=== PATIENT | female | born 1950 | race Caucasian/White ===

== ENCOUNTER 2020-10-01 16:23 | Emergency (ER) | payer MEDICARE, OTHER, SELFPAY ==
--- NOTE | ~2020-10-01 | XR_ITS ---
EXAMINATION: XR abdomen/kub 1V EXAM DATE: 10/01/2020 17:13 INDICATION: pelvic/low back pain. TECHNIQUE: Frontal projection of the upper abdomen, frontal projection lower abdomen/pelvis for inter pretation. There is no prior study for comparison. FINDINGS: There is expected amount of colonic stool and gas. No small bowel dilation, nonobstructiv e bowel gas pattern. There are no suspicious calcifications identified. There is no organomegaly suspected. The bones are unremarkable. There is no free intraperitoneal air. The lung bases are clear. IMPRESSION: Unremarkable abdomen x-ray exam. Reviewed, dictated and finalized at location A.
[2020-10-01 16:44] VITALS: BP 143/78; PULSE 88; RESP 16; TEMP 36.9; O2SAT 97
--- NOTE | 2020-10-01 16:50 | ED.ABDPAIN ---
HPI - Abdominal Pain General Chief Complaint: Abdominal Pain Stated Complaint: abd pain Time Seen by Provider: 10/01/20 16:51 Source: patient and RN notes reviewed Mode of arrival: ambulatory Limitations: no limitations History of Present Illness HPI narrative: 70-year-old female presents with concern for 2-week history of lower abdominal pain, pressure. Reports over the past several days she has began having low back pain. Reports slow urine stream. Reports she is able to empty her bladder however it takes much longer than usual. She denies dysuria, frequency, urgency. She denies nausea, vomiting, change in bowel habits. Reports she recently recovered from Covid. She denies fever, body aches, chills, upper respiratory symptoms. Reports she went to her doctor's office this morning, he was not in, however the staff did a urinalysis. Reports the urinalysis was clear, however they prescribed her Bactrim while they wait for culture. Reports she has not started taking the Bactrim yet. MD elicited complaint: abdominal pain Related Data Home Medications Medication Instructions Recorded Confirmed ascorbic acid 125 mg-collagen, cap PO 01/15/20 01/15/20 hydrolyzed 740 mg capsule cholecalciferol (vit D3) 5,500 tablet PO 01/15/20 01/15/20 unit-vit K2 200 mcg tablet multivitamin 1 cap PO DAILY 01/15/20 01/15/20 omega-3 fatty acids 500 mg capsule 500 mg PO DAILY 01/15/20 01/15/20 oregano oil 1,500 mg capsule mg PO 01/15/20 01/15/20 turmeric 400 mg capsule mg PO 01/15/20 01/15/20 Allergies Allergy/AdvReac Type Severity Reaction Status Date / Time guaifenesin Allergy Unknown Verified 01/10/18 09:16 mold Allergy Unknown Verified 01/10/18 09:17 Penicillins Allergy Unknown Rash Verified 01/10/18 09:14 polyethylene glycol 3350 Allergy Unknown Verified 07/15/18 09:20 Review of Systems Review of Systems: Narrative: CONSTITUTIONAL: Denies malaise, chills, sweats, or fever. ENT: Denies rhinorrhea, congestion, sinus pain, otalgia or sore throat. CARDIOVASCULAR: Denies chest pain, palpitations, or edema. RESPIRATORY: Denies cough or dyspnea. GASTROINTESTINAL: Reports lower abdominal pain and pelvic pressure. Denies nausea, vomiting, diarrhea, bloody, or mucous stools. GENITOURINARY: Denies dysuria or hematuria. Reports slow urine stream MUSCULOSKELETAL: Reports low back pain. Denies joint pain, or myalgia. NEUROLOGIC: Reports daily headache. All systems reviewed & are unremarkable except as noted in HPI and below PMFSH Past Medical History Medical History (Updated 10/01/20 @ 17:30 by Katt Han NP) MARILIN (obstructive sleep apnea) Rectal fistula w/repair Rhinitis Surgical History Surgical History (Updated 01/15/20 @ 10:40 by Star Whitt APRN) H/O bilateral oophorectomy History of appendectomy History of uterine suspension procedure Family History Family History Father Diabetes mellitus Hypertension Family history of sleep apnea Family history of congestive heart failure Sibling Diabetes mellitus Family history of sleep apnea Grandparent Family history of malignant neoplasm of breast in first degree relative Mother Family history of sudden Social History Social History Smoking status: Never smoker Second hand tobacco smoke exposure: No Alcohol intake: never Comments At time of signature, agree with nursing past medical, surgical, social and family history. There is no relevant family history pertinent to the presenting complaint Exam Narrative: Exam Narrative: GENERAL: Well-appearing, well-nourished, and in no acute distress. HEAD: Normocephalic, atraumatic. EYES: PERRLA, conjunctivae clear, and EOMI. ENT: Nares clear. Mucous membranes moist. NECK: Supple. No lymphadenopathy CHEST: Speaks in full sentences. No respiratory distress. HEART: Regular rate and r
--- NOTE | 2020-10-01 17:36 | PC.NURSE ---
Pelvic exam done by provider and patient tolerated well.
== END 2020-10-01 17:37 | disposition home or self-care (01) ==
PROVIDERS: Emergency Provider Nurse Practitioner; PCP Nurse Practitioner Adult Health
DX: R10.30 Lower abdominal pain, unspecified (principal); G47.33 Obstructive sleep apnea (adult) (pediatric)
CPT/HCPCS: 74018; 81003; 99213; G0463

== ENCOUNTER 2020-10-07 10:08 | Emergency (ER) | payer MEDICARE, OTHER, SELFPAY ==
[2020-10-07 10:14] VITALS: BP 142/90; PULSE 72; RESP 20; TEMP 36.7; O2SAT 99
--- NOTE | 2020-10-07 10:15 | ED.SKABFB ---
HPI - Skin/Abscess/Foreign Bdy General Chief complaint: Skin/Abscess/Foreign Body Stated complaint: rash Time Seen by Provider: 10/07/20 10:26 Source: patient and RN notes reviewed Mode of arrival: ambulatory Limitations: no limitations History of Present Illness HPI narrative: 70-year-old female presents with concern for painful rash. Reports she has been having right lower back pain, side pain, lower abdominal pain for 1 week. Reports she was seen by her primary care doctor and an urgent care for possible urinary tract infection that was causing pain. Reports both times her UA was normal. 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 Reports pain persisted. Reports she developed a rash in the painful area over the last 2 days. She denies any other rash on her body. She denies swollen lips, swollen tongue, difficulty breathing. She denies any relieving factors. She denies fever, general malaise, body aches. MD complaint: rash Related Data Home Medications Medication Instructions Recorded Confirmed ascorbic acid 125 mg-collagen, 1 cap PO DAILY 01/15/20 10/07/20 hydrolyzed 740 mg capsule cholecalciferol (vit D3) 5,500 1 tablet PO DAILY 01/15/20 10/07/20 unit-vit K2 200 mcg tablet multivitamin 1 cap PO DAILY 01/15/20 10/07/20 omega-3 fatty acids 500 mg capsule 500 mg PO DAILY 01/15/20 10/07/20 oregano oil 1,500 mg capsule 1,500 mg PO DAILY 01/15/20 10/07/20 turmeric 400 mg capsule 400 mg PO DAILY 01/15/20 10/07/20 Allergies Allergy/AdvReac Type Severity Reaction Status Date / Time guaifenesin Allergy Unknown Unknown Verified 10/07/20 10:14 mold Allergy Unknown Unknown Verified 10/07/20 10:14 Penicillins Allergy Unknown Rash Verified 10/07/20 10:14 polyethylene glycol 3350 Allergy Unknown Unknown Verified 10/07/20 10:14 Review of Systems Review of Systems: Narrative: CONSTITUTIONAL: Denies malaise, chills, sweats, or fever. ENT: Denies rhinorrhea, congestion, sinus pain, otalgia or sore throat. CARDIOVASCULAR: Denies chest pain, palpitations, or edema. RESPIRATORY: Denies cough or dyspnea. GASTROINTESTINAL: Denies abdominal pain, nausea, vomiting, diarrhea GENITOURINARY: Denies dysuria or hematuria. SKIN: Reports painful red rash to the right low back, right side, right lower abdomen, right thigh MUSCULOSKELETAL: Denies myalgia. NEUROLOGIC: Denies headache. All systems reviewed & are unremarkable except as noted in HPI and below PMFSH Past Medical History Medical History (Updated 10/07/20 @ 10:34 by Katt Han NP) Asthma MARILIN (obstructive sleep apnea) Rectal fistula w/repair Rhinitis Surgical History Surgical History (Updated 10/05/20 @ 10:25 by Gwen Jennings [facility]) History of appendectomy History of ovarian cystectomy History of tubal ligation History of uterine suspension procedure Family History Family History Father Diabetes mellitus Hypertension Family history of sleep apnea Family history of congestive heart failure Sibling Diabetes mellitus Family history of sleep apnea Grandparent Family history of malignant neoplasm of breast in first degree relative Mother Family history of sudden Social History Social History Smoking status: Never smoker Second hand tobacco smoke exposure: No Alcohol intake: never Comments At time of signature, agree with nursing past medical, surgical, social and family history. There is no relevant family history pertinent to the presenting complaint Exam Narrative: Exam Narrative: GENERAL: Well-appearing, well-nourished, and in no acute distress. HEAD: Normocephalic, atraumatic. EYES: PERRLA, conjunctivae clear, and EOMI. ENT: Mucous membranes moist. Oropharynx without edema, erythema or lesions. NECK: Supple. No lymphadenopathy CHEST: Clear to auscultation. No respir
== END 2020-10-07 10:41 | disposition home or self-care (01) ==
PROVIDERS: Emergency Provider Nurse Practitioner; PCP Nurse Practitioner Adult Health
DX: B02.9 Zoster without complications (principal); J45.909 Unspecified asthma, uncomplicated; G47.33 Obstructive sleep apnea (adult) (pediatric)
CPT/HCPCS: 99213; G0463

== ENCOUNTER 2024-06-19 14:07 | Outpatient (CLI) | payer MEDICARE, OTHER, SELFPAY ==
--- OUTSIDE RECORDS SUMMARY | 2024-06-19 14:50 | XMS_ITS | Data Portability ---
Author Organization FABRICE - [facility], PDeborahCDeborah, [facility] Address [address] [place] [address] Assessment No assessment recorded. Plan of Treatment Reminders Order Date Submit Date Provider Last Modified By Organization Details Last Modified Time Details Appointments None recorded. Lab HbA1c (hemoglobi n A1c), blood 2013 014 smimms Not available 4 13:53:13 TSH, serum or plasma 2013 014 smimms Not available 4 13:53:13 VAP lipid panel, serum 2013 014 smimms Not available 4 13:53:13 insulin, fasting, serum 2013 014 smimms Not available 4 13:53:13 CBC 2013 014 smimms Not available 4 13:53:13 CMP, serum or plasma 2013 014 smimms Not available 4 13:53:13 carcinoemb ryonic Ag, quant, serum or plasma 2013 014 RIGOBERTO Not available 4 16:37:31 HbA1c (hemoglobi n A1c), blood 2013 014 RIGOBERTO Not available 4 16:37:24 T4, free, serum 2013 014 RIGOBERTO Not available 4 16:37:30 TSH, serum or plasma 2013 014 RIGOBERTO Not available 4 16:37:29 lipid panel, serum 2013 014 [email or web address] Not available 4 23:35:43 carcinoemb ryonic Ag, quant, serum or plasma 2014 015 RIGOBERTO Not available 5 07:40:50 HbA1c (hemoglobi n A1c), blood 2014 015 RIGOBERTO Not available 5 07:40:49 T4, free, serum 2014 015 RIGOBERTO Not available 5 07:40:50 TSH, serum or plasma 2014 015 RIGOBERTO Not available 5 07:40:50 lipid panel, serum 2014 015 RIGOBERTO Not available 5 07:40:49 carcinoemb ryonic Ag, quant, serum or plasma 2015 016 RIGOBERTO Not available 6 10:06:58 HbA1c (hemoglobi n A1c), blood 2015 016 RIGOBERTO Not available 6 10:06:54 T4, free, serum 2015 016 RIGOBERTO Not available 6 10:06:56 TSH, serum or plasma 2015 016 RIGOBERTO Not available 6 10:06:57 lipid panel, serum 2015 016 RIGOBERTO Not available 6 10:06:53 Referral None recorded. Procedures None recorded. Surgeries None recorded. Imaging None recorded. Medication Orders None recorded. Patient TargetsNo targets recorded. Patient Instructions Encounter Date Encounter Id Patient Instructions Last Modified By Organization Details Last Modified Time 09/30/2013 [id number] When You Want to Lose Weight: Care Instructions [email or web address] Not available 09/30/2013 16:40:30 Pt. plans to resume her previously effective diet plan. [email or web address] Not available 09/30/2013 12:04:19 Reason for Referral None Reported. Results Created Date Observation Date Name Description Value Unit Range Abnormal Flag Note LastModifiedBy Organization Detail LastModifiedTime 10/08/19 14 10/08/2013 CBC WBC 4.5 x10e3 /uL 3.4-10 .8 Not Available [facility] ([facility]) [address] [place], [address], 10/08/2013 14:58:08 10/08/19 14 10/08/2013 CBC RBC 4.36 x10e6 /uL 3.77-5 .28 Not Available [facility] ([facility]) [address] [place], [address], 10/08/2013 14:58:08 10/08/19 14 10/08/2013 CBC hemoglobin 12.9 g/dL 11.1-1 5.9 Not Available [facility] ([facility]) [address] [place], [address], 10/08/2013 14:58:08 10/08/19 14 10/08/2013 CBC hematocrit 40.3 % 34.0-4 6.6 Not Available [facility] ([facility]) [address] [place], [address], 10/08/2013 14:58:08 10/08/19 14 10/08/2013 CBC MCV 92 fL 79-97 Not Available [facility] ([facility]) [address] [place], [address], 10/08/2013 14:58:08 10/08/19 14 10/08/2013 CBC MCH 29.6 pg 26.6-3 3.0 Not Available [facility] ([facility]) [address] [place], [address], 10/08/2013 14:58:08 10/08/19 14 10/08/2013 CBC MCHC 32.0 g/dL 31.5-3 5.7 Not Available [facility] ([facility]) [address] [place], [address], 10/08/2013 14:58:08 10/08/19 14 10/08/2013 CBC RDW 14.0 % 12.3-1 5.4 Not Available [facility] ([facility]) [address] [place], [address], 10/08/2013 14:58:08 10/08/19 14 10/08/2013 CBC platelets 217 x10e3 /uL 155-37 9 Not Available [facility] ([facility]) [address] [place], [address], 10/08/2013 14:58:08 10/08/19 14 10/08/2013 CBC neutrophils 60 % 40-74 Not Avai lable [facility] ([facility]) [address] [place], [address], 10/08/2013 14:58:08 10/08/19 14 10/08/2013 CBC lymphs 28 % 14-46 Not Available [facility] ([facility]) [address] [place], [address], 10/08/2013 14:58:08 10/08/19 14 10/08/2013 CBC monocytes 8 % 4-12 Not Availa ble [facility] ([facility]) [address] [place], [address], 10/08/2013 14:58:08 10/08/19 14 10/08/2013 CBC eos 3 % 0-5 Not Available [facility] ([facility]) [address] [place], [address], 10/08/2013 14:58:08 10/08/19 14 10/08/2013 CBC basos 1 % 0-3 Not Available [facility] ([facility]) [address] [place], [address], 10/08/2013 14:58:08 10/08/19 14 10/08/2013 CBC neutrophils (absolute) 2.7 x10e3 /uL 1.4-7. 0 Not Available [facility] ([facility]) [address] [place], [address], 10/08/2013 14:58:08 10/08/19 14 10/08/2013 CBC lymphs (absolute) 1.3 x10e3 /uL 0.7-3. 1 Not Available [facility] ([facility]) [address] [place], [address], 10/08/2013 14:58:08 10/08/19 14 10/08/2013 CBC monocytes(ab solute) 0.3 x10e3 /uL 0.1-0. 9 Not Available [facility] ([facility]) [address] [place], [address], 10/08/2013 14:58:08 10/08/19 14 10/08/2013 CBC eos (absolute) 0.1 x10e3 /uL 0.0-0. 4 Not Available [facility] ([facility]) [address] [place], [address], 10/08/2013 14:58:08 10/08/19 14 10/08/2013 CBC baso (absolute) 0.0 x10e3 /uL 0.0-0. 2 Not Available [facility] ([facility]) [address] [place], [address], 10/08/2013 14:58:08 10/08/19 14 10/08/2013 CBC immature granulocytes 0 % 0-2 Not Available [facility] ([facility]) [address] [place], [address], 10/08/2013 14:58:08 10/08/19 14 10/08/2013 CBC immature grans (abs) 0.0 x10e3 /uL 0.0-0. 1 Not Available [facility] ([facility]) [address] [place], [address], 10/08/2013 14:58:08 10/08/19 14 10/08/2013 CMP, serum or plasm a glucose, serum 92 mg/dL 65-99 Not Available [facility] ([facility]) [address] [place], [address], 10/08/2013 14:58:08 10/08/19 14 10/08/2013 CMP, serum or plasm a BUN 8 mg/dL 8-27 Not Available [facility] ([facility]) [address] [facility] [place], [address], 10/08/2013 14:58:08 10/08/19 14 10/08/2013 CMP, serum or plasm a creatinine, serum 0.72 mg/dL 0.57-1 .00 Not Available [facility] ([facility]) [address] [facility] [place], [address], 10/08/2013 14:58:08 10/08/19 14 10/08/2013 CMP, serum or plasm a eGFR if nonafricn AM 91 mL/mi n/1.7 3 >59 Not Available [facility] ([facility]) [address] [place], [address], 10/08/2013 14:58:08 10/08/19 14 10/08/2013 CMP, serum or plasm a eGFR if africn AM 105 mL/mi n/1.7 3 >59 Not Available [facility] ([facility]) [address] [place], [address], 10/08/2013 14:58:08 10/08/19 14 10/08/2013 CMP, serum or plasm a BUN/creatini ne ratio 11 11-26 Not Available [facility] ([facility]) [address] [place], [address], 10/08/2013 14:58:08 10/08/19 14 10/08/2013 CMP, serum or plasm a sodium, serum 142 mmol/ L 134-14 4 Not Available [facility] ([facility]) [address] [place], [address], 10/08/2013 14:58:08 10/08/19 14 10/08/2013 CMP, serum or plasm a potassium, serum 4.7 mmol/ L 3.5-5. 2 Not Available [facility] ([facility]) [address] [place], [address], 10/08/2013 14:58:08 10/08/19 14 10/08/2013 CMP, serum or plasm a chloride, serum 105 mmol/ L 97-108 Not Available [facility] ([facility]) [address] [place], [address], 10/08/2013 14:58:08 10/08/19 14 10/08/2013 CMP, serum or plasm a carbon dioxide, total 25 mmol/ L 19-28 Not Available [facility] ([facility]) [address] [place], [address], 10/08/2013 14:58:08 10/08/19 14 10/08/2013 CMP, serum or plasm a calcium, serum 9.0 mg/dL 8.6-10 .2 Not Available [facility] ([facility]) [address] [place], [address], 10/08/2013 14:58:08 10/08/19 14 10/08/2013 CMP, serum or plasm a protein, total, serum 6.2 g/dL 6.0-8. 5 Not Available [facility] ([facility]) [address] [place], [address], 10/08/2013 14:58:08 10/08/19 14 10/08/2013 CMP, serum or plasm a albumin, serum 4.0 g/dL 3.6-4. 8 Not Available [facility] ([facility]) [address] [place], [address], 10/08/2013 14:58:08 10/08/19 14 10/08/2013 CMP, serum or plasm a globulin, total 2.2 g/dL 1.5-4. 5 Not Available [facility] ([facility]) [address] [place], [address], 10/08/2013 14:58:08 10/08/19 14 10/08/2013 CMP, serum or plasm a A/G ratio 1.8 1.1-2. 5 Not Available [facility] ([facility]) [address] [place], [address], 10/08/2013 14:58:08 10/08/19 14 10/08/2013 CMP, serum or plasm a bilirubin, total 0.4 mg/dL 0.0-1. 2 Not Available [facility] ([facility]) [address] [place], [address], 10/08/2013 14:58:08 10/08/19 14 10/08/2013 CMP, serum or plasm a alkaline phosphatase, S 46 IU/L 39-117 Not Available [facility] ([facility]) [address] [place], [address], 10/08/2013 14:58:08 10/08/19 14 10/08/2013 CMP, serum or plasm a AST (SGOT) 21 IU/L 0-40 Not Available [facility] ([facility]) [address] [place], [address], 10/08/2013 14:58:08 10/08/19 14 10/08/2013 CMP, serum or plasm a ALT (SGPT) 20 IU/L 0-32 Not Available [facility] ([facility]) [address] [place], [address], 10/08/2013 14:58:08 10/08/19 14 10/08/2013 lipid panel cholesterol, total 205 mg/dL 100-19 9 high Not Available [facility] ([facility]) [address] [place], [address], 10/08/2013 14:58:09 10/08/19 14 10/08/2013 lipid panel triglyceride s 71 mg/dL 0-149 Not Available [facility] ([facility]) [address] [place], [address], 10/08/2013 14:58:09 10/08/19 14 10/08/2013 lipid panel HDL cholesterol 79 mg/dL >39 accor ding to atp-I II guide lines , HDL-C >59 mg/dL IS consi dered A negat lissa risk facto r for CHD. Not Available [facility] ([facility]) [address] [place], [address], 10/08/2013 14:58:09 10/08/19 14 10/08/2013 lipid panel VLDL cholesterol leonard 14 mg/dL 5-40 Not Available [facility] ([facility]) [address] [place], [address], 10/08/2013 14:58:09 10/08/19 14 10/08/2013 lipid panel LDL cholesterol calc 112 mg/dL 0-99 high Not Available [facility] ([facility]) [address] [place], [address], 10/08/2013 14:58:10/08/19 14 10/08/2013 TSH, serum or plasm a TSH 2.810 uIU/m L 0.450- 4.500 Not Available [facility] ([facility]) [address] [place], [address], 10/08/2013 14:58:09 10/08/19 14 10/08/2013 HbA1c (hemo globi n A1c), blood hemoglobin A1C 5.6 % 4.8-5. 6 . incre ased risk for diabe ana: 5.7 - 6.4 diabe ana: >6.4 glyce wale contr ol for adult s with diabe ana: <7.0 Not Available [facility] ([facility]) [address] [place], [address], 10/08/2013 14:58:10 10/08/19 14 10/08/2013 T4 free T4,free(dire ct) 1.07 NG/dL 0.82-1 .77 Not Available [facility] ([facility]) [address] [place], [address], 10/08/2013 14:58:10 10/08/19 14 10/08/2013 insul in serum insulin 12.6 uIU/m L 2.6-24 .9 Not Available [facility] ([facility]) [address] [place], [address], 10/08/2013 14:58:11 03/30/20 14 03/31/2014 HbA1c (hemo globi n A1c), blood hemoglobin A1C 5.6 % 4.8-5. 6 . INCRE ASED RISK FOR DIABE ANA: 5.7 - 6.4 DIABE ANA: >6.4 GLYCE WALE CONTR OL FOR ADULT S WITH DIABE ANA: <7.0 Not Available [facility] ([facility]) [address] [place], [address], 03/31/2014 16:37:24 03/30/20 14 03/31/2014 insul in, serum insulin 10.6 uIU/m L 2.6-24 .9 Not Available [facility] ([facility]) [address] [place], [address], 03/31/2014 16:37:25 03/30/20 14 03/31/2014 lipid panel , serum cholesterol, total 181 mg/dL 100-19 9 Not Available [facility] ([facility]) [address] [place], [address], 03/31/2014 16:37:28 03/30/20 14 03/31/2014 lipid panel , serum triglyceride s 91 mg/dL 0-149 Not Available [facility] ([facility]) [address] [place], [address], 03/31/2014 16:37:28 03/30/20 14 03/31/2014 lipid panel , serum HDL cholesterol 64 mg/dL >39 ACCOR DING TO ATP-I II GUIDE LINES , HDL-C >59 MG/DL IS CONSI DERED A NEGAT LISSA RISK FACTO R FOR CHD. Not Available [facility] ([facility]) [address] [place], [address], 03/31/2014 16:37:28 03/30/20 14 03/31/2014 lipid panel , serum VLDL cholesterol leonard 18 mg/dL 5-40 Not Available [facility] ([facility]) [address] [place], [address], 03/31/2014 16:37:28 03/30/20 14 03/31/2014 lipid panel , serum LDL cholesterol calc 99 mg/dL 0-99 Not Available [facility] ([facility]) [address] [place] [address], [address], 03/31/2014 16:37:28 03/30/20 14 03/31/2014 TSH, serum or plasm a TSH 1.670 uIU/m L 0.450- 4.500 Not Available [facility] ([facility]) [address] [place], [address], 03/31/2014 16:37:29 03/30/20 14 03/31/2014 T4, free, serum T4,free(dire ct) 1.26 NG/dL 0.82-1 .77 Not Available [facility] ([facility]) [address] [place], [address], 03/31/2014 16:37:30 03/30/20 14 03/31/2014 carci noemb ryoni c Ag, quant , serum or plasm a cea 6.1 NG/mL 0.0-4. 7 high EARLENE ECLIA METHO DOLOG Y NONSM OKERS <3.9 SMOKE RS <5.6 Not Available [facility] ([facility]) [address] [place], [address], 03/31/2014 16:37:31 03/30/20 14 03/31/2014 insul in, serum insulin 10.3 uIU/m L 2.6-24 .9 Not Available [facility] ([facility]) [address] [place], [address], 03/31/2014 16:37:32 11/07/19 15 11/07/2014 lipid panel , serum cholesterol, total 203 mg/dL 100-19 9 high Not Available [facility] ([facility]) [address] [place], [address], 11/07/2014 07:40:49 11/07/19 15 11/07/2014 lipid panel , serum triglyceride s 80 mg/dL 0-149 Not Available [facility] ([facility]) [address] [place], [address], 11/07/2014 07:40:49 11/07/19 15 11/07/2014 lipid panel , serum HDL cholesterol 75 mg/dL >39 ACCOR DING TO ATP-I II GUIDE LINES , HDL-C >59 MG/DL IS CONSI DERED A NEGAT LISSA RISK FACTO R FOR CHD. Not Available [facility] ([facility]) [address] [facility], [place], [address], 11/07/2014 07:40:49 11/07/19 15 11/07/2014 lipid panel , serum VLDL cholesterol leonard 16 mg/dL 5-40 Not Available [facility] ([facility]) [address] [place], [address], 11/07/2014 07:40:49 11/07/19 15 11/07/2014 lipid panel , serum LDL cholesterol calc 112 mg/dL 0-99 high Not Available [facility] ([facility]) [address] [place], [address], 11/07/2014 07:40:49 11/07/19 15 11/07/2014 HbA1c (hemo globi n A1c), blood hemoglobin A1C 5.6 % 4.8-5. 6 . INCRE ASED RISK FOR DIABE ANA: 5.7 - 6.4 DIABE ANA: >6.4 GLYCE WALE CONTR OL FOR ADULT S WITH DIABE ANA: <7.0 Not Available [facility] ([facility]) [address] [place], [address], 11/07/2014 07:40:49 11/07/19 15 11/07/2014 T4, free, serum T4,free(dire ct) 1.33 NG/dL 0.82-1 .77 Not Available [facility] ([facility]) [address] [place], [address], 11/07/2014 07:40:50 11/07/19 15 11/07/2014 TSH, serum or plasm a TSH 2.010 uIU/m L 0.450- 4.500 Not Available [facility] ([facility]) [address] [place], [address], 11/07/2014 07:40:50 11/07/19 15 11/07/2014 carci noemb ryoni c Ag, quant , serum or plasm a cea 6.6 NG/mL 0.0-4. 7 high EARLENE ECLIA METHO DOLOG Y NONSM OKERS <3.9 SMOKE RS <5.6 Not Available [facility] ([facility]) [address] [place], [address], 11/07/2014 07:40:50 09/06/19 16 09/07/2015 lipid panel , serum cholesterol, total 197 mg/dL 100-19 9 Not Available [facility] ([facility]) [address] [place], [address], 09/07/2015 10:06:53 09/06/19 16 09/07/2015 lipid panel , serum triglyceride s 76 mg/dL 0-149 Not Available [facility] ([facility]) [address] [place], [address], 09/07/2015 10:06:53 09/06/19 16 09/07/2015 lipid panel , serum HDL cholesterol 75 mg/dL >39 ACCOR DING TO ATP-I II GUIDE LINES , HDL-C >59 MG/DL IS CONSI DERED A NEGAT LISSA RISK FACTO R FOR CHD. Not Available [facility] ([facility]) [address] [facility], [place], [address], 09/07/2015 10:06:53 09/06/19 16 09/07/2015 lipid panel , serum VLDL cholesterol leonard 15 mg/dL 5-40 Not Available [facility] ([facility]) [address] [place], [address], 09/07/2015 10:06:53 09/06/19 16 09/07/2015 lipid panel , serum LDL cholesterol calc 107 mg/dL 0-99 above high normal Not Available [facility] ([facility]) [address] [place], [address], 09/07/2015 10:06:53 09/06/19 16 09/07/2015 lipid panel , serum comment: [employer] Not Available [facility] ([facility]) [address] [place], [address], 09/07/2015 10:06:53 09/06/19 16 09/07/2015 HbA1c (hemo globi n A1c), blood hemoglobin A1C 5.6 % 4.8-5. 6 PRE-D IABET ES: 5.7 - 6.4 DIABE ANA: >6.4 GLYCE WALE CONTR OL FOR ADULT S WITH DIABE ANA: <7.0 Not Available [facility] ([facility]) [address] [place], [address], 09/07/2015 10:06:54 09/06/19 16 09/07/2015 T4, free, serum T4,free(dire ct) 1.14 NG/dL 0.82-1 .77 Not Available [facility] ([facility]) [address] [place], [address], 09/07/2015 10:06:56 09/06/19 16 09/07/2015 TSH, serum or plasm a TSH 2.130 uIU/m L 0.450- 4.500 Not Available [facility] ([facility]) [address] [place], [address], 09/07/2015 10:06:57 09/06/19 16 09/07/2015 carci noemb ryoni c Ag, quant , serum or plasm a cea 7.7 NG/mL 0.0-4. 7 above high normal EARLENE ECLIA METHO DOLOG Y NONSM OKERS <3.9 SMOKE RS <5.6 Not Available [facility] ([facility]) [address] [facility], [place], [address], 09/07/2015 10:06:58 09/01/19 16 08/31/2015 imagi ng/di agnos tic resul t No observ ation record ed. [facility] [address] [facility], [place], [address], 09/06/2015 12:33:30 10/15/19 16 10/15/2015 imagi ng/di agnos tic resul t No observ ation record ed. [email or web address] Not Available 2015 23:21:09 06/28/19 17 06/28/2016 XR, ankle , 3 or more view No observ ation record ed. [email or web address] Not Available 2016 00:07:48 11/18/19 17 11/13/2016 MAMMO , scree chetna, bilat eral No observ ation record ed. [facility] [address] [facility], [place], [address], 11/18/2016 22:20:27 Result Notes None recorded. Problems Name Problem SNOMED Code Status Onset Date Resolution Date Notes Provider Name and Address Organization Details Recorded Time Morbid obesity 472822988 Active Estuardo Emmanuel MD [address] [facility] [address], [place], [address] , [facility] 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 6 12:33:59 Obstructive sleep apnea syndrome 33060801 Active Estuardo Emmanuel MD [address] [place], [address] , [facility] 6 12:33:59 High carcinoembryo jose roberto antigen level 712392872 Active Estuardo Emmanuel MD [address] [place], [address] , [facility] 6 12:33:59 Problem Notes None recorded. Procedures Surgical History Date Name Laterality Status Provider Name and Address Organization Details Recorded Time Knee Surgery completed Marcel Marie [facility] 09/30/2013 11:12:58 Imaging Results Imaging Date Name Status LastModified by Organiz ation Details LastModified Time 08/31/2015 imaging/diagno stic result completed [email or web address] [facility] [address] [place], [address], 09/06/2015 12:33:30 10/15/2015 imaging/diagno stic result completed Information not available 10/17/2015 23:21:09 06/28/2016 XR, ankle, 3 or more view completed Information not available 06/29/2016 00:07:48 11/13/2016 MAMMO, screening, bilateral completed [email or web address] [facility] [address] [facility] [address] [place], [address], 11/18/2016 22:20:27 Procedure Notes None recorded. Medical Equipment None Reported. Allergies Allergen ID Allergen Name Allergen Category Reaction Reaction Severity Criticality Documentation Date Start Date Code Code System Note Provider Name and Address Organization Details Recorded Time 2295 Product containin g penicilli n and antibioti c (product) medicatio n Not available Not available Not available 09/30/2013 48313 05 SNOMED Marcel arthur [place] [facility] 4 11:12:58 Medications Name Sig Start Date Stop Date Status Note LastModified by Organization Details LastModified Time azithromycin 250 mg tablet TAKE 2 TABLETS (500 MG) BY ORAL ROUTE ONCE DAILY FOR 1 DAY THEN 1 TABLET (250 MG) BY ORAL ROUTE ONCE DAILY FOR 4 DAYS active Not Available Not Available No t Available oxycodone-aceta minophen 5 mg-325 mg tablet active Not Available Not Available Not Available neomycin-polymy velasquez-dexameth 3.5 mg/mL-10,000 unit/mL-0.1% eye drops active Not Available Not Available No t Available fluorometholone 0.1 % eye drops,suspensio n active Not Available Not Available Not Available ibuprofen 600 mg tablet active Not Available Not Available No t Available ketoconazole 2 % topical cream active Not Available Not Availa ble Not Available Vitals Date Recorded Body height Body mass index (BMI) Body weight Systolic blood pressure Diastolic blood pressure Provider Name and Address Organization Details Last Updated DateTime 11/06/2014 162.56 cm 45.8 kg/m2 257971.4 14780 g 124 mm[Hg] 74 mm[Hg] Marcel AVINA [facility] 5 13:57:17 Date Recorded Body height Body mass index (BMI) Body weight Heart rate Systolic blood pressure Diastolic blood pressure Provider Name and Address Organization Details Last Updated DateTime 6 162.56 cm 46.2 kg/m2 234382. 375967 g 61 /min 125 mm[Hg] 77 mm[Hg] Marcel Mota [facility] 6 11:24:46 Date Recorded Body height Body weight Body mass index (BMI) Heart rate Systolic blood pressure Diastolic blood pressure Provider Name and Address Organization Details Last Updated DateTime 4 162.56 cm 463838. 424844 g 45.5 kg/m2 58 /min 108 mm[Hg] 69 mm[Hg] Marcel [facility] 4 11:12:58 Date Recorded Body weight Heart rate Body mass index (BMI) Body height Systolic blood pressure Diastolic blood pressure Systolic blood pressure Diastolic blood pressure Provider Name and Address Organization Details Last Updated DateTime 4 154664. 35885 g 66 /min 45.8 kg/m2 162.56 cm 120 mm[Hg] 74 mm[Hg] 135 mm[Hg] 82 mm[Hg] Marcel Hurley [facility] 4 14:03:53 Social History Question Answer Notes LastModified by Organizat ion Details LastModified Time Tobacco Smoking Status Never Smoker Not Available [facility] 03/23/2020 03:29:37 What Is Your Level Of Alcohol Consumption? None [id number] Information not available 03/23/2020 Do You Wear A Helmet When Biking? No [id number] Information not available 03/23/2020 Are You Blind Or Do You Have Difficulty Seeing? No [id number] Information not available 03/23/2020 Is Blood Transfusion Acceptable In An Emergency? Yes [id number] Information not available 03/23/2020 Are You Or Have You Been Involved With Bullying? No [id number] Information not available 03/23/2020 What Is Your Level Of Caffeine Consumption? Moderate [id number] Information not available 03/23/2020 How Much Tobacco Do You Chew? None [id number] Information not available 03/23/2020 What Type Of Chain Maker Machine Do You Use? None [id number] Information not available 03/23/2020 Are You Currently Employed? Yes [id number] Information not available 03/23/2020 Are You Deaf Or Do You Have Serious Difficulty Hearing? 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 No [id number] Information not available 03/23/2020 What Is The Fluoride Status Of Your Home? Unknown [id number] Information not available 03/23/2020 Do You Use Insect Repellent Routinely? Yes [id number] Information not available 03/23/2020 Legally Blind In One Or Both Eyes? No Information not available 11/06/2014 Live Alone Or With Others? With Others Information not available 11/06/2014 Marital Status Informatio n not available 09/30/2013 Mosquito Repellent Used Routinely No Information not available 11/06/2014 How Many Children Do You Have? 2 [id number] Information not available 03/23/2020 What Is Your Parents' Marital Status? [id number] Information not available 03/23/2020 Performs Monthly Self-breast Exam? No Information not available 11/06/2014 Pool Exposure No Information not available 11/06/2014 Smoke Alarm In Home Yes Information not available 11/06/2014 Do You Have Smoke And Carbon Monoxide Detectors In Your Home? Yes [id number] Information not available 03/23/2020 Are You Passively Exposed To Smoke? No Information not available 11/06/2014 How Much Tobacco Do You Smoke? No [id number] Information not available 03/23/2020 General Stress Level Low Information not available 09/30/2013 Work Related Injury? No Information not available 11/06/2014 Sex: Unknown Functional Status Question Answer Note LastModified by Organizat ion Details LastModified Time Do you have difficulty doing errands alone? No [id number] Information not available 03/23/2020 Do you have difficulty dressing or bathing? No [id number] Information not available 03/23/2020 What is your exercise level? Occasional [id number] Information not available 03/23/2020 Mental Status Question Answer Note LastModified by Organization D etails LastModified Time Do you have difficulty concentrating, remembering or making decisions? No [id number] Information no t available 03/23/2020 Family History Relationship Description Onset Age of this Age Resolved Age Notes LastModified by Organization Details LastModified Time Brother Type 2 diabetes mellitus [email or web address] Not available 2015 12:33:29 Brother Morbid obesity [email or web address] Not available 2015 12:33:29 Father Leukemia (morphologic abnormality) 80 T cell [email or web address] Not available 12:33:29 Father Diabetes mellitus 81 [email or web address] Not available 2015 12:33:29 Father Congestive heart failure [email or web address] Not available 2015 12:33:29 Sister Malignant melanoma [email or web address] Not available 2015 12:33:29 Sister Obesity [email or web address] Not available 09/06/2015 12:33:29 Sister Obesity [email or web address] Not available 09/06/2015 12:33:29 Sister Obesity [email or web address] Not available 09/06/2015 12:33:29 Sister Obesity cwessling Not available 09/06/2015 12:33:29 Sister Morbid obesity [email or web address] Not available 2015 12:33:29 Notes:mom had heart attack, dad side had diabetes. Medical History Condition Response Coronary Artery Disease N Gout N Blood Diseases N Kidney Stones N Hyperthyroidism N Hypothyroidism N Depression N COPD Y Developmental or Behavioral Disorders N Anxiety Disorder N Muscle, Joint, or Bone Problems N Vision or Eye Problems N Arthritis N Head Injury/Concussion N Congenital Anomalies N Cancer N Stroke N ADHD N Bladder or Kidney Problems N Hospital Admission other than N High Cholesterol N Liver Disease N Headaches N Fibromyalgia N Kidney Disease N Ear or Hearing Problems N Thyroid Problems N Skin Problems N Anemia N Constipation N Mental Illness N Diabetes N Bedwetting N Seizures/Epilepsy N Heart Problems/Murmur N Tuberculosis N Diverticulitis N Asthma Y Allergies N Reflux/GERD N Heart Disease N Pulmonary Embolism N Hypertension N Osteoporosis N Chicken Pox Y Autism Spectrum Disorder (ASD) N Gynecological HistoryNo gynecological history recorded. Obstetrics History GPAL:G 0 P 0 0 0 0 Past Encounters Encounter ID Performer Location Encounter Start Date Encounter Closed Date Diagnosis/Indication Diagnosis SNOMED-CT Code Diagnosis ICD10 Code Diagnosis Note [id number] Jessica Claros [facility] [address] [place] [address] 09/30/2013 11:00:02 09/30/2013 12:13:19 Morbid obesity 319311970 Neoplasm of ovary 263682213 [id number] Estuardo Emmanuel MD Main Office [address] [place] [address] 03/30/2014 12:37:35 03/30/2014 15:10:36 Morbid obesity 062877184 Neoplasm of ovary 511184611 Obstructiv e sleep apnea syndrome 64007035 History of asthma 029903920 High carci noembryonic antigen level 258426923 [id number] Main Office [address] [place] [address] 11/06/2014 13:04:35 11/06/2014 14:38:07 Adult health examination 592139644 Morbid obesity 214454783 Neoplasm of ovary 413965133 Obstructiv e sleep apnea syndrome 86392716 History of asthma 316044145 High carci noembryonic antigen level 092664905 [id number] Jessica Gambier Main [facility] [address] [place] [address] 09/06/2015 11:19:45 09/06/2015 13:04:42 Adult health examination 581946901 Z00.01 Morbid obesity 605799136 E66.01 Neoplasm of ovary 593806 001 D49.5 Obstructiv e sleep apnea syndrome 67437736 G47.33 History of asthma 264764 007 Z87.09 High carci noembryonic antigen level 051255979 R97.0 Health Concerns Section Related Observation LastModified by Organization Detai ls LastModified Time None Recorded Concern Status LastModified by Organization Details LastModified Time None Recorded Advance Directives Directive None Recorded Payers Encounter Date Sequence Insurance Name Policy Number Policy Fox Covered Member ID Fox Member ID Guarantor Name 09/30/2013 1 [facility] ([facility]) [id number] Berkley Torres [id number] Berkley Torres 03/30/2014 1 [facility] ([facility]) [id number] Berkley Torres [id number] Berkley Torres 11/06/2014 1 [facility] (O) [id number] Berkley Torres [id number] Berkley Torres 09/06/2015 1 [facility] (O) [id number] Berkley Torres [id number] Berkley Torres Notes Date Note Type Note Provider Name and Address Organization Details Recorded Time 09/30/2013 text/html Laparoscopic bilateral ovarectomies 12/31 Dr. Ryan Wolfe at [facility] - benign calcified tumors. subsequent L facial shingles. Now more fever blister around mouth. Lost 50 lbs regained 17. Estuardo Emmanuel MD [address] [place], [address], [facility] 09/30/2013 12:04:56 03/30/2014 text/html Lost 60, regaine d 40 lbs. Thinks had UTI after [employer] cruise now fine. Heavy congestion and nasal mucus last two months - gross taste. Borderline osteopenia - Had negative colonoscopy 2008 - 2012 bilateral ovarectomy for what turned out to be benign disease. CEA reportedly high but insurance would not pay for another colonoscopy so soon. Scaling on outer ears. Estuardo Emmanuel MD [address] [place], [address], [facility] 03/30/2014 15:04:47 11/06/2014 text/html Annual visit. Nasal/postnasal drainage in morning. pale green. gross sinus smell . since April. Last colposcopy benign 2008 unsure if she had polyps then Estuardo Emmanuel MD [address] [place], [address], [facility] 11/06/2014 14:30:40 09/06/2015 text/html Was very stresse d taking care of father Felicita Chavis in her home who 07/2015. Not done well eating - weight up - back on weight watchers. Feels well. Had normal colonoscopy 2008. CEA has been elevated for several year per GY, but Insurance company has not approved repeat colonoscopy given absence of hematochezia or other concerning symptoms. Estuardo Emmanuel MD [address] [place], [address], [facility] 09/06/2015 12:34:32 OBGyn Episode No OBEpisode recorded.
--- OUTSIDE RECORDS SUMMARY | 2024-06-19 14:50 | XMS_ITS | Clinical Summary ---
Author Organization [facility] Address [address] [place] [address] Care Team Providers Care Medical Pathologist Name Role Phone Magalie Nieves MD Primary Care Provider Star Bell MD Unavailable Marietta Gaming MD Unavailable [phone] Allergies Active Allergy Reactions Criticality Noted Date Comments Guaifenesin Other (See comments) Low 08/16/2016 Mental issues. Feels spaced out Polyethylene Glycol 3350 Angioedema High 08/16/2016 Penicillins Rash Medium 01/24/2012 Medications CALCIUM ORAL Active mlyuk-blvox-5-d [id number]-pmg-aptbxq 285-31-51-50 mg capsule Active magnesium oxide (MAG-OX) 400 mg (241.3 mg elemental magnesium) tabletIndicatio ns:hypomagnesem ia Active multivitamin tabletIndicatio ns:Vitamin Deficiency Prevention Active ascorbic acid (VITAMIN C) 500 mg tablet,chewable Acti ve ibuprofen (ADVIL,MOTRIN) 600 mg tablet ibuprofen 600 mg tablet Active OREGANO OIL ORAL Take by mouth daily Active ZINC ORAL Take by mouth daily Zinc and vitamin D Active hyalur ac/chond sul/colg II/AA (HYALURONIC ACID, CHOND-COLLGN, ORAL) Take by mouth daily Active valACYclovir (VALTREX) 1 gram tablet Take 2 tabs (2000 mg) 2 times a days for 1 day. Start at onset of cold sore. 12 tablet 2 3 Active estrogens, conjugated, (PREMARIN) vaginal cream Apply nightly to vagina for 2 weeks, then Sunday// Sunday 42.5 g 11 4 02/13/20 Active Active Problems Problem Noted Date Diagnosed Date Osteopenia of neck of femur 06/16/2022 MARILIN (obstructive sleep apnea) 04/10/2017 Class 3 severe obesity due t o excess calories without serious comorbidity with body mass index (BMI) of 40.0 to 44.9 in adult 02/21/2017 Arthritis of right knee 02/21/2017 Resolved Problems Problem Noted Date Diagnosed Date Resolved Date Body mass index 40.0-44.9, adult ([facility]) 05/04/2022 05/04/2022 Herpes zoster 09/18/2020 05/04/2022 Elevated CEA 07/18/2018 05/04/2022 Neoplasm of ovary 07/18/2018 05/04/2022 Pain in joint involving ankle and foot 07/15/2018 05/04/2022 Sleep apnea 07/15/2018 05/04/2022 Osteoarthritis of right knee 09/11/2017 05/04/2022 Body mass index (BMI) 45.0-49.9, adult 02/21/2017 05/04/2022 Knee pain 11/30/2016 05/04/2022 Pain of foot 08/16/2016 05/04/2022 Ankle pain 08/11/2016 05/04/2022 Ovarian cyst 01/03/2013 05/04/2022 Arthralgia of shoulder 01/19/201205/04 Surgical History Surgery Date Site/Laterality Comments UTERINE FIBROID SURGERY Uterine Surgery - (Added by HAYES Conv) IN COLONOSCOPY FLX DX W/COLLJ SPEC WHEN PFRMD Complete Colonoscopy - (Added by HAYES Conv) KNEE ARTHROSCOPY 05/21/2001 - 05/20/2002 Right LAPAROTOMY OOPHERECTOMY 05/21/2002 - 05/20/2003 Bilateral for calcified ovaries SHOULDER ARTHROSCOPY APPENDECTOMY UTERINE SUSPENSION TUBAL LIGATION 1974 Medical History Medical History Date Comments Arthritis of knee, degenerative MARILIN on CPAP Asthma Female bladder prolapse Ovarian cyst 01/03/2013 Herpes zoster 09/18/2020 Fibrocystic breast for years Osteoporosis borderline Family History Medical History Relation Name Comments Diabetes Brother Reji Goodwin Diabetes Mellit us - (Added by TW Conv) Leukemia Father Breast cancer Maternal Grandmother Xavi Nunes Early Mother Berkley Goodwin Heart attack Mother Berkley Goodwin Acute Myocardia l Infarction - (Added by TW Conv) Colon cancer Neg Hx Relation Name Status Comments Brother Reji Goodwin Father Maternal Grandmother Xavi Nunes Mother Berkley Goodwin Social History Tobacco Use Types Packs/Day Years Used Date Smoking Tobacco: Never Smokeless Tobacco: Never Tobacco Cessation:Counseling Given: Not Answered Alcohol Use Standard Drinks/Week Comments No 0 (1 standard drink = 0.6 oz pur e alcohol) AUDIT-C Answer Date Recorded Q1: How often do you have a drink containing alcohol? Never 02/13/2024 Q2: How many drinks containi ng alcohol do you have on a typical day when you are drinking? Patient does not drink Q3: How often do you have si x or more drinks on one occasion? Never 02/13/2024 PHQ-2 Answer Date Recorded PHQ-2 Total Score (If total score is 3 or more points, staff should administer the PHQ-9) 0 05/04/2022 Comments No Sex and Gender Information Value Date Recorded Sex Assigned at Not on file Legal Sex Female 11:14 PM MEDICAL SAFETY DIRECTOR Gender Identity Not on file Sexual Orientation Not on file Obstetrics History Para Term AB IAB SAB Ectopic Multiple Livin g Live Births 2 2 2 Date Outcome GA Total Labor Labor/2nd/3rd Weight Sex Type Anes PTL Sveta A1 A5 Name Clin Term Term Last Filed Vital Signs Vital Sign Reading Time Taken Comments Blood Pressure 123/85 02/13/2024 1:19 PM CDT Pulse 64 05/04/2022 2:22 PM MEDICAL SAFETY DIRECTOR Temperature - - Respiratory Rate - - Oxygen Saturation 96% 12/11/2017 2:15 PM CDT Inhaled Oxygen Concentration - - Weight 110.9 kg (244 lb 6.4 oz) 02/13/2024 1:19 PM CDT Height 160 cm (5' 3 ) 05/04/2022 2:22 PM MEDICAL SAFETY DIRECTOR Body Mass Index 43.29 05/04/2022 2:22 PM MEDICAL SAFETY DIRECTOR Plan of Treatment Health Maintenance Due Date Last Done Comments Colon Cancer Screening-Colonoscopy 1952 DTaP/Tdap/Td Vaccine (1 - Tdap) 1963 Hepatitis B Screening 1970 Zoster Vaccine (1 of 2) 2002 Pneumococcal vaccine 65+ (1 of 1 - PCV) 2017 Depression Screening 05/04/2023 05/04/2022 Fall Risk Assessment 05/04/2023 05/04/2022 Well Visit 65+ 05/04/2023 05/04/2022 Breast Cancer Screening-Mammogram 06/15/2023 06/15/2022, 01/29/2019, 01/17/2018, Additional history exists Influenza Vaccine (#1) 2024 Osteoporosis Screening-Bone Density Scan 06/15/2024 06/15/2022 Colon Cancer Screening-DNA Stool Discontinued 06/07/19 Colon Cancer Screening-FIT Discontinued 06/07/2022 Hepatitis C Screening Completed 06/15/2022 Procedures Procedure Name Priority Date/Time Associated Diagnosis Comments SCREENING MAMMOGRAM BILATERAL W HADLEY Schedule Routine, Read Routine (OP Routine) 06/15/2022 2:39 PM MEDICAL SAFETY DIRECTOR Encounter for screening mammogram for malignant neoplasm of breast DEXA AXIAL SKELETON BONE DENSITY 1 OR MORE SITES Schedule Routine, Read Routine (OP Routine) 06/15/2022 2:25 PM MEDICAL SAFETY DIRECTOR Postmenopausal HEPATITIS C ANTIBODY Routine 06/15/2022 10:36 AM MEDICAL SAFETY DIRECTOR Routine physical examination Encounter for hepatitis C screening test for low risk patient STOOL DNA ? COLOGUARD Routine 06/07/2022 9:35 AM MEDICAL SAFETY DIRECTOR Screen for colon cancer from Last 3 Months or Most Recently Relevant to Health Maintenance Results * SCREENING MAMMOGRAM BILATERAL W HADLEY (06/15/2022 2:39 PM MEDICAL SAFETY DIRECTOR) Anatomical Region Laterality Modality Breast Bilateral Mammography 06/16/2022 9:55 AM MEDICAL SAFETY DIRECTOR Impressions 06/16/2022 9:55 AM MEDICAL SAFETY DIRECTOR There is no mammographic evidence of malignancy. A 1 year screening mammogram is recommended. BI-RADS: 1 - Negative. The patient has been or will be contacted. The patient will be entered into a reminder system with a target due date of 1 year for her next mammogram. Electronically signed by: Masood Wick M.D. Narrative 06/16/2022 9:55 AM MEDICAL SAFETY DIRECTOR EXAMINATION: SCREENING MAMMOGRAM BILATERAL W HADLEY ORDERING HEALTHCARE PROVIDER: MAGALIE NIEVES HISTORY: Routine screening mammography. COMPARISON: ??01/29/2019, 01/17/2018, 11/13/2016, 09/08/2015 TECHNIQUE: CC and MLO views of the bilateral breasts were obtained with digital technique using breast tomosynthesis with C view. Computer aided detection was utilized. FINDINGS: DENSITY: There are scattered fibroglandular elements in the bilateral breasts. BREASTS: There are no suspicious masses, suspicious calcifications, or other suspicious findings in either breast. There has been no suspicious interval change. us Magalie Nieves MD IMG MAMMO PROCEDURES F inal Result * Dexa Axial Skeleton Bone Density 1 or 2 Site (06/15/2022 2:25 PM MEDICAL SAFETY DIRECTOR) Anatomical Region Laterality Modality Body N/A Other 06/15/2022 7:53 PM MEDICAL SAFETY DIRECTOR Narrative 06/15/2022 7:55 PM MEDICAL SAFETY DIRECTOR EXAM DESCRIPTION: ?? DEXA AXIAL SKELETON BONE DENSITY 1 OR MORE SITES REASON FOR STUDY: ?72 y/o ?? year old ?? F ??with given history of screening. ?? 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 62 ??inches ? Maximum height: 65.5 inches ? Weight: 226 pounds Risk factors: Postmenopausal COMPARISON: None available. FINDINGS: AP LUMBAR SPINE L1-L4: Total BMD is ?? 1.047 ??g/cm2 T-score is 0.0 LEFT HIP: Total BMD is 0.797 g/cm2 T-score is -1.2 Femoral neck BMD is 0.38252 g/cm2 T-score is -2.4 FRAX: 10 year risk for a major osteoporotic fracture is 12 %, 10 year risk for a hip fracture is 2.6 % IMPRESSION: ??Based on the ??left femoral neck ??bone mineral density (T-score ??-2.4 ) the patient has ?? low ??bone mass . ?? REFERENCE: Bone mineral density: ? Normal (T-score above or = -1.0) ? Low bone mass ??(T-score between -1.0 and -2.5) replaces the previously used term osteopenia ? Osteoporosis (T-score = or below -2.5) Medical evaluation for secondary causes of low bone mineral density may be appropriate. FRAX is a World Health Organization validated fracture risk assessment tool that calculates a person's 10 year probability of a major osteoporosis related fracture and hip fracture. ??According to the National Osteoporosis Foundation guidelines, postmenopausal women and men age 50 or older with low bone mass and a 10 year probability of a major osteoporosis related fracture = or greater than 20% or a 10 year probability of a hip fracture = or greater than 3% should be considered for treatment. For further information, including treatment recommendations, please refer to the 2013 ISCD Official Positions (http://www.iscd.org) and the NOF's Clinician's Guide to Prevention and Treatment of Osteoporosis (http://www.nof.org/professionals/clinical-guidelines) THIS IS AN ELECTRONICALLY VERIFIED FINAL REPORT 06/15/2022 7:55 PM - Electronically signed by ??Masoud Glover M.D. MF: [email or web address] D: ??06/15/2022 7:55 PM T: ??06/15/2022 7:55 PM Report ID: [id number] Reading Location: ??[id number] Procedure Note Masoud Glover MD - 06/15/2022 EXAM DESCRIPTION: DEXA AXIAL SKELETON BONE DENSITY 1 OR MORE SITES REASON FOR STUDY: 72 y/o year old F with given history ofscreening. 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 FINDINGS: AP LUMBAR SPINE L1-L4: Total BMD is 1.047 g/cm2 T-score is 0.0 LEFT HIP: Total BMD is 0.797 g/cm2 T-score is -1.2 Femoral neck BMD is 0.26141 g/cm2 T-score is -2.4 FRAX: 10 year risk for a major osteoporotic fracture is 12 %, 10 year risk for ahip fracture is 2.6 % IMPRESSION: Based on the left femoral neck bone mineral density (T-score -2.4 )the patient has low bone mass . REFERENCE: Bone mineral density: Normal (T-score above or = -1.0) Low bone mass (T-score between -1.0 and -2.5) replaces thepreviously used term osteopenia Osteoporosis (T-score = or below -2.5) Medical evaluation for secondary causes of low bone mineral density may be appropriate. FRAX is a World Health Organization validated fracture risk assessmenttool that calculates a person's 10 year probability of a major osteoporosisrelated fracture and hip fracture. According to the National OsteoporosisFoundation guidelines, postmenopausal women and men age 50 or older with low bonemass and a 10 year probability of a major osteoporosis related fracture = or greater than 20% or a 10 year probability of a hip fracture = or greaterthan 3% should be considered for treatment. For further information, including treatment recommendations, please referto the 2013 ISCD Official Positions (http://www.iscd.org) and the NOF's Clinician's Guide to Prevention and Treatment of Osteoporosis (http://www.nof.org/professionals/clinical-guidelines) THIS IS AN ELECTRONICALLY VERIFIED FINAL REPORT 06/15/2022 7:55 PM - Electronically signed by Masoud Glover M.D. MF: [email or web address] Report ID: [id number] Reading Location: [place] [address] Magalie Nieves MD IM DXA PROCEDURES Fin al Result * Hepatitis C antibody (06/15/2022 10:36 AM MEDICAL SAFETY DIRECTOR) Pathologist [facility] Hep C Ab Nonreactive Nonreactive [facility] Comment: Interpretive Data Nonreactive: Antibodies to HCV not detected. Does NOT exclude the possibility of recent exposure to HCV. Equivocal: Equivocal for HCV antibodies. Supplemental molecular testing will be automatically performed to determine infection status in accordance with current CDC screening recommendations. ?? Reactive: Positive for HCV antibodies. ??This may represent current or past HCV infection. Supplemental molecular testing will be automatically performed to determine ??current infection status in accordance with current CDC screening recommendations. Interpretive data was last revised on 2019. Blood 06/15/2022 10:3 6 AM MEDICAL SAFETY DIRECTOR 06/15/2022 2:45 PM MEDICAL SAFETY DIRECTOR Magalie Nieves MD LAB MICROBIOLOGY - GEN ERAL ORDERABLES Final Result [facility] [id number] [address] Department [place] [address] * Stool DNA - Cologuard (06/07/2022 9:35 AM MEDICAL SAFETY DIRECTOR) Stool DNA - Cologuard Negative Negative [employer] (CLIA #:[id number]) Comment: NEGATIVE TEST RESULT. A negative Cologuard result indicates a low likelihood that a colorectal cancer (CRC) or advanced adenoma (adenomatous polyps with more advanced pre-malignant features) ??is present. The chance that a person with a negative Cologuard test has a colorectal cancer is less than 1 in 1500 (negative predictive value >99.9%) or has an ??advanced adenoma is less than ??5.3% (negative predictive value 94.7%). These data are based on a prospective cross-sectional study of 10,000 individuals at average risk for colorectal cancer who were screened with both Cologuard and colonoscopy. (Tori Lowry al, N Engl J Med 2014;370(14):1286- 1297) The normal value (reference range) for this assay is negative. COLOGUARD RE-SCREENING RECOMMENDATION: Periodic colorectal cancer screening is an important part of preventive healthcare for asymptomatic individuals at average risk for colorectal cancer. ??Following a negative Cologuard result, the [place] Cancer Society and U.S. Multi-Society Task Force screening guidelines recommend a Cologuard re-screening interval of 3 years. References: [place] [employer] Guideline for Colorectal Cancer Screening: https://www.cancer.org/cancer/rdjzs-zczbsp-usimvz/cmumoxzsd-dglgleleh-uyrnxrf/ac s-rec ommendations.html.; Jake DK, Negar CR, Silvia GonzalesK, Colorectal Cancer Screening: Recommendations for Physicians and Patients from the U.S. Multi-Society Task Force on Colorectal Cancer Screening , Am J Gastroenterology 2017; 112:3825-7466. TEST DESCRIPTION: Composite algorithmic analysis of stool DNA-biomarkers with hemoglobin immunoassay. ?? Quantitative values of individual biomarkers are not reportable and are not associated with individual biomarker result reference ranges. Cologuard is intended for colorectal cancer screening of adults of either sex, 45 years or older, who are at average-risk for colorectal cancer (CRC). Cologuard has been approved for use by the U.S. FDA. The performance of Cologuard was established in a cross sectional study of average-risk adults aged 50-84. Cologuard performance in patients ages 45 to 49 years was estimated by sub-group analysis of near-age groups. Colonoscopies performed for a positive result may find as the most clinically significant lesion: colorectal cancer [4.0%], advanced adenoma (including sessile serrated polyps greater than or equal to 1cm diameter) [20%] or non- advanced adenoma [31%]; or no colorectal neoplasia [45%]. These estimates are derived from a prospective cross-sectional screening study of 10,000 individuals at average risk for colorectal cancer who were screened with both Cologuard and colonoscopy. (Tori Lowry al, N Engl J Med 2014;370(14):1761-1944.) Cologuard may produce a false negative or false positive result (no colorectal cancer or precancerous polyp present at colonoscopy follow up). A negative Cologuard test result does not guarantee the absence of CRC or advanced adenoma (pre-cancer). The current Cologuard screening interval is every 3 years. ([place] Cancer Society and U.S. Multi-Society Task Force). Cologuard performance data in a 10,000 patient pivotal study using colonoscopy as the reference method can be accessed at the following location: www.[employer]results. Additional description of the Cologuard test process, warnings and precautions can be found at www.Afoundri[employer].com. Stool 06/07/2022 9:35 AM MEDICAL SAFETY DIRECTOR 06/08/2022 12:39 PM MEDICAL SAFETY DIRECTOR Magalie Nieves MD LAB BODY FLUIDS AND ST [facility] ORDERABLES Final Result [facility] [employer] (CLIA #:[id number]) [address] [place] [address] from Last 3 Months or Most Recently Relevant to Health Maintenance Insurance MEDICARE [facility] MEDICARE [employer] MEDICARE [employer] [place] Care Teams Medical Pathologist Relationship Specialty Start Date End Date Magalie Nieves MD PCP - General Family Practice 05/04/22 Star Bell MD [address] [facility] [address] [place] [address] Surgeon Orthopedic Surgery 05/04/22 Marietta Gaming MD [address] [place] [address] Consulting Physician Pulmonary Disease 05/04/22
--- OUTSIDE RECORDS SUMMARY | 2024-06-19 14:50 | XMS_ITS | Clinical Summary ---
Author Organization [facility] Address [address] [place] [address] Care Team Providers Care Inspector Air Carrier Name Role Phone Naty Amaral MD Primary Care Provider [phone] Sherman Whitten MD Unavailable Source Comments [facility],non-owned Affiliates and Associated Physician Practices is amultiple site organization consisting of ambulatory clinics and hospital sitesin [place], [place], [place] and [place]. This disclosure is being madepursuant to the Care Everywhere program and may not contain all information available regarding this patient. Last updated 18.[facility] Allergies Active Allergy Reactions Criticality Noted Date Comments Penicillins 03/06/2017 Medications * Be aware that medications may not be up to date on this document. Alwaysverify current medications with the patient. Medication Sig Dispensed Refills Start Date End Date Status nabumetone (RELAFEN) 750 MG tablet Take 1 tablet by mouth 2 times daily 60 tablet 5 03/06/2017 Active Additional Information Patient not taking.Reported on 04/17/2017 Active Problems Problem Noted Date Diagnosed Date Primary osteoarthritis of right knee 04/17/2017 Social History Tobacco Use Types Packs/Day Years Used Date Smoking Tobacco: Never Smokeless Tobacco: Never Sex and Gender Information Value Date Recorded Sex Assigned at Not on file Gender Identity Not on file Sexual Orientation Not on file Last Filed Vital Signs Vital Sign Reading Time Taken Comments Blood Pressure - - Pulse - - Temperature - - Respiratory Rate - - Oxygen Saturation - - Inhaled Oxygen Concentration - - Weight 120.2 kg (265 lb) 03/06/2017 2:20 PM CDT Height 160 cm (5' 3 ) 03/06/2017 2:20 PM CDT Body Mass Index 46.94 03/06/2017 2:20 PM CDT Plan of Treatment Health Maintenance Due Date Last Done Comments BONE DENSITY TESTING 1950 COLOGUARD (AGES 45-75) - COL ON CA SCREENING 1950 COLON MONITORING 1950 COLONOSCOPY - COLON CA SCREENING 1952 CT COLONOGRAPHY - COLON CA SCREENING 1950 Colorectal Cancer Screening 1950 FIT - COLON CA SCREENING 1952 FLEX SIG - COLON CA SCREENING 1952 LIPID TESTING 1950 MAMMOGRAM 1950 HEPATITIS C SCREENING 02/27/1970 DTAP/TDAP/TD VACCINES (1 - Tdap) 1971 PNEUMOCOCCAL VACCINE 50+ (1 of 1 - PCV) 2002 ZOSTER VACCINE (1 of 2) 2002 Respiratory Syncytial Virus (RSV) Vaccine Pt: or over 60 yrs (1 - Risk 60-74 years 1-dose series) 2012 SCREENING FOR DIABETES 03/06/2017 COVID-19 VACCINE (1 - 2023-2 5 season) 2024 INFLUENZA VACCINE (#1) 2024 DEPRESSION SCREENING 05/21/2024 MEDICARE AWV ? CALENDAR YEAR 2024 HEPATITIS B VACCINE Aged Out No longe r eligible based on patient's age to complete this topic HIB VACCINE Aged Out No longer eligi ble based on patient's age to complete this topic HPV VACCINE Aged Out No longer eligi ble based on patient's age to complete this topic MENINGOCOCCAL (Group B) VACCINE Aged Out No longer eligible based on patient's age to complete this topic MENINGOCOCCAL VACCINE Aged Out No paulette nba eligible based on patient's age to complete this topic Care Teams Inspector Air Carrier Relationship Specialty Start Date End Date Naty Amaral MD [address] [place] [address] [address] [place] [address] PCP - General Adolescent Medicine 02/22/17 [place] [address] [address] Orthopedic Surgery 03/06/17
--- OUTSIDE RECORDS SUMMARY | 2024-06-19 14:50 | XMS_ITS | Referral Summary ---
Author Organization [facility] Address [address] [place] [address] Care Team Providers Care Slot Key Person Name Role Phone aNty Amaral MD Primary Care Provider [phone] Sherman Whitten MD Unavailable [phone] Source Comments [facility],non-owned Affiliates and Associated Physician Practices is amultiple site organization consisting of ambulatory clinics and hospital sitesin [place], [place], [place] and [place]. This disclosure is being madepursuant to the Care Everywhere program and may not contain all information available regarding this patient. Last updated 18.[facility] Allergies Active Allergy Reactions Criticality Noted Date [...] 03/06/2017 2:20 PM CDT Plan of Treatment Not on file Care Teams Slot Key Person Relationship Specialty Start Date End Date Naty Amaral MD [address] [place] [address] PCP - General Adolescent Medicine 02/22/17 [place] [address] [facility] [address] [place] [address] Orthopedic Surgery 03/06/17
--- OUTSIDE RECORDS SUMMARY | 2024-06-19 14:50 | XMS_ITS | Encounter Summary ---
Author Organization [facility] Facility Care Team Providers Care Regulatory Affairs Spec Name Role Phone Estuardo Emmanuel MD Primary Care Provider [phone] Milo Amaral MD Primary Care Provide r Milo Amaral MD Primary Care Provide r Estuardo Emmanuel MD Primary Care Provider [phone] Milo Amaral MD Primary Care Provide r Marlen Salazar NP Primary Care Provider [phone] Magalie Alvarado MD Primary Care Provider Star Bell MD Unavailable Marietta Gaming MD Unavailable [phone] Encounter Details Date Type Department Care Team (Latest Contact Info) Description 04/26/2017 Orders Only [facility] CLINCONV ProviderJuan MD [address] [place] [address] Social History Tobacco Use Types Packs/Day Years Used Date Smoking Tobacco: Never Comments Unknown Sex and Gender Information Value Date Recorded Sex Assigned at Not on file Legal Sex Female 11:14 PM PATIENT CLERICAL ASSISTANT Gender Identity Not on file Sexual Orientation Not on file documented as of this encounter Plan of Treatment Not on file documented as of this encounter Procedures Procedure Name Priority Date/Time Associated Diagnosis Comments COLONOSCOPY - SCAN 04/26/2017 12 :00 AM PATIENT CLERICAL ASSISTANT documented in this encounter Results * COLONOSCOPY - SCAN (04/26/2017 12:00 AM PATIENT CLERICAL ASSISTANT) Narrative 04/26/2017 12:00 AM PATIENT CLERICAL ASSISTANT Ordered by an unspecified provider. us Historical Provider Final Res ult documented in this encounter Visit Diagnoses Not on filedocumented in this encounter Care Teams Regulatory Affairs Spec Relationship Specialty Start Date End Date Estuardo Emmanuel MD [address] [place] [address] PCP - General 09/06/16 07/09/17 Milo Amaral MD [address] [place] [address] PCP - General 07/10/17 07/16/17 Milo Amaral MD [address] [place] [address] PCP - General 07/17/17 07/17/17 Estuardo Emmanuel MD [address] [place] [address] PCP - General 07/18/17 08/01/17 Milo Amaral MD [address] [place] [address] PCP - General 08/02/17 12/25/17 Marlen Salazar NP [address] [place] [address] PCP - General 12/26/17 05/03/22 Magalie Alvarado MD [address] [facility] [address] [place] [address] PCP - General Family Practice 05/04/22 Star Bell MD [address] [facility] [address] [place] [address] Surgeon Orthopedic Surgery 05/04/22 Marietta Gaming MD [address] [place] [address] Consulting Physician Pulmonary Disease 05/04/22 documented as of this encounter
--- OUTSIDE RECORDS SUMMARY | 2024-06-19 14:50 | XMS_ITS | Referral Summary ---
Author Organization [facility] Address [address] [place] [address] Care Team Providers Care Media Services Coordinator Name Role Phone Magalie Nieves MD Primary Care Provider Star Bell MD Unavailable [phone] Marietta Gaming MD Unavailable [phone] Allergies Active Allergy Reactions Criticality Noted Date Comments Guaifenesin Other (See comments) Low 08/16/2016 Mental issues. 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 Pain in joint involving ankle and foot 07/15/2018 05/04/2022 Sleep apnea 07/15/2018 05/04/2022 Osteoarthritis of right knee 09/11/2017 05/04/2022 Body mass index (BMI) 45.0-49.9, adult 02/21/2017 05/04/2022 Knee pain 11/30/2016 05/04/2022 Pain of foot 08/16/2016 05/04/2022 Ankle pain 08/11/2016 05/04/2022 Ovarian cyst 01/03/2013 05/04/2022 Arthralgia of shoulder 01/19/201205/04 Social History Tobacco Use Types Packs/Day Years [...] on file Legal Sex Female 11:14 PM TUBE MAN Gender Identity Not on file Sexual Orientation Not on file Last Filed Vital Signs Vital Sign Reading Time Taken Comments Blood Pressure 123/85 02/13/2024 1:19 PM CDT Pulse 64 05/04/2022 2:22 PM TUBE MAN Temperature - - Respiratory Rate - - Oxygen Saturation 96% 12/11/2017 2:15 PM CDT Inhaled Oxygen Concentration - - Weight 110.9 kg (244 lb 6.4 oz) 02/13/2024 1:19 PM CDT Height 160 cm (5' 3 ) 05/04/2022 2:22 PM TUBE MAN Body Mass Index 43.29 05/04/2022 2:22 PM TUBE MAN Plan of Treatment Not on file Procedures Procedure Name Priority Date/Time Associated Diagnosis Comments SCREENING MAMMOGRAM BILATERAL W HADLEY Schedule Routine, Read Routine (OP Routine) 06/15/2022 2:39 PM TUBE MAN Encounter for screening mammogram for malignant neoplasm of breast DEXA AXIAL SKELETON BONE DENSITY 1 OR MORE SITES Schedule Routine, Read Routine (OP Routine) 06/15/2022 2:25 PM TUBE MAN Postmenopausal HEPATITIS C ANTIBODY Routine 06/15/2022 10:36 AM TUBE MAN Routine physical examination Encounter for hepatitis C screening test for low risk patient STOOL DNA ? COLOGUARD Routine 06/07/2022 9:35 AM TUBE MAN Screen for colon cancer from Last 3 Months or Most Recently Relevant to Health Maintenance Results * SCREENING MAMMOGRAM BILATERAL W HADLEY (06/15/2022 2:39 PM TUBE MAN) Anatomical Region Laterality Modality Breast Bilateral Mammography 06/16/2022 9:55 AM TUBE MAN Impressions 06/16/2022 9:55 AM TUBE MAN There is no mammographic evidence of malignancy. A 1 year screening mammogram is recommended. BI-RADS: 1 - Negative. The patient has been or will be contacted. The patient will be entered into a reminder system with a target due date of 1 year for her next mammogram. Electronically signed by: Masood Wick M.D. Narrative 06/16/2022 9:55 AM TUBE MAN EXAMINATION: SCREENING MAMMOGRAM BILATERAL W HADLEY ORDERING [...] 1 or 2 Site (06/15/2022 2:25 PM TUBE MAN) Anatomical Region Laterality Modality Body N/A Other 06/15/2022 7:53 PM TUBE MAN Narrative 06/15/2022 7:55 PM TUBE MAN EXAM DESCRIPTION: ?? DEXA AXIAL SKELETON BONE DENSITY 1 OR MORE SITES REASON FOR STUDY: ?72 y/o ?? year old ?? F ??with given history of screening. ?? 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 Artaic (S/N [id number]) CLINICAL INFORMATION: Current height: ?? 62 ??inches ? Maximum height: 65.5 inches ? Weight: 226 pounds Risk factors: Postmenopausal COMPARISON: None available. FINDINGS: AP LUMBAR SPINE L1-L4: Total BMD is ?? 1.047 ??g/cm2 T-score is 0.0 LEFT HIP: Total BMD is 0.797 g/cm2 T-score is -1.2 Femoral neck BMD is 0.52742 g/cm2 T-score is -2.4 FRAX: 10 year [...] PM T: ??06/15/2022 7:55 PM Report ID: [id number] Reading Location: ??[id number] Procedure Note Masoud Glover MD - 06/15/2022 EXAM DESCRIPTION: DEXA AXIAL SKELETON BONE DENSITY 1 OR MORE SITES REASON FOR STUDY: 72 y/o year old F with given history ofscreening. 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 FINDINGS: AP LUMBAR SPINE L1-L4: Total BMD is 1.047 g/cm2 T-score is 0.0 LEFT HIP: Total BMD is 0.797 g/cm2 T-score is -1.2 Femoral neck BMD is 0.38331 g/cm2 T-score is -2.4 FRAX: 10 year [...] Masoud Glover M.D. MF: [id number] Report ID: [id number] Reading Location: [place] [address] Magalie Nieves MD IM DXA PROCEDURES Fin al Result * Hepatitis C antibody (06/15/2022 10:36 AM TUBE MAN) [facility] Hep C Ab Nonreactive Nonreactive [facility] Comment: Interpretive Data Nonreactive: Antibodies to HCV [...] on 2019. Blood 06/15/2022 10:3 6 AM TUBE MAN 06/15/2022 2:45 PM TUBE MAN Magalie Nieves MD LAB MICROBIOLOGY - GEN ERAL ORDERABLES Final Result [facility] [address] [place] [address] * Stool DNA - Cologuard (06/07/2022 9:35 AM TUBE MAN) Stool DNA - Cologuard Negative Negative [facility] (CLIA #:[id number]) Comment: NEGATIVE TEST RESULT. A negative Cologuard [...] cancer. ??Following a negative Cologuard result, the [place] [employer] Society and U.S. Multi-Society Task Force screening guidelines recommend a Cologuard re-screening interval of 3 years. References: [place] [employer] Guideline for Colorectal Cancer Screening: https://www.cancer.org/cancer/vfxou-zngdst-jipvmm/drfxtpczo-kykrnnljo-mjevnvc/ac s-rec ommendations.html.; Jake DK, Negar CR, Silvia GonzalesK, Colorectal Cancer Screening: Recommendations for Physicians and Patients from the U.S. Multi-Society Task Force on Colorectal Cancer Screening , Am J Gastroenterology 2017; 112:4298-2857. TEST DESCRIPTION: Composite algorithmic analysis of stool [...] screened with both Cologuard and colonoscopy. (Tori Medellin et al, N Engl J Med 2014;370(14):9444-0561.) Cologuard may produce a false negative or false positive result (no colorectal cancer or precancerous polyp present at colonoscopy follow up). A negative Cologuard test result does not guarantee the absence of CRC or advanced adenoma (pre-cancer). The current Cologuard screening interval is every 3 years. ([place] [employer] Society and U.S. Multi-Society Task Force). Cologuard performance data in a 10,000 patient pivotal study using colonoscopy as the reference method can be accessed at the following location: www.[employer]/results. Additional description of the Cologuard test process, warnings and precautions can be found at www.[employer].com. Stool 06/07/2022 9:35 AM TUBE MAN 06/08/2022 12:39 PM TUBE MAN Magalie Nieves MD LAB BODY FLUIDS AND ST MICKIE ORDERABLES Final Result [facility] (CLIA #:[id number]) [address] [place] [address] from Last 3 Months or Most Recently Relevant to Health Maintenance Insurance MEDICARE [facility] MEDICARE [facility] MEDICARE [facility] Care Teams Media Services Coordinator Relationship Specialty Start Date End Date Magalie Nieves MD PCP - General Family Practice 05/04/22 Star Bell MD [address] [place] [address] Surgeon Orthopedic Surgery 05/04/22 Marietta Gaming MD [address] [facility] [address] [place] [address] Consulting Physician Pulmonary Disease 05/04/22
--- OUTSIDE RECORDS SUMMARY | 2024-06-19 14:50 | XMS_ITS | Patient Health Summary ---
Author Organization [facility] Address [address] [place] [address] Care Team Providers Care Dough Brake Machine Operator Name Role Phone Naty Amaral MD Primary Care Provider [phone] Sherman Whitten MD Unavailable [phone] Note from [facility],non-owned Affiliates and Associated Physician Practices is amultiple site organization consisting of ambulatory clinics and hospital sitesin [place], [place], [place] and [place]. This disclosure is being madepursuant to the Care Everywhere program and may not contain all information available regarding this patient. Last updated 18.[facility] Allergies * Penicillins Medications * Be aware that medications may not be up to date on this document. Alwaysverify current medications with the patient. * nabumetone (RELAFEN) 750 MG tablet(Started 03/06/2017) Take 1 tablet by mouth 2 times daily 5 refills remaining Active Problems Problem Noted Date Diagnosed Date [...] Mass Index 46.94 03/06/2017 2:20 PM CDT Care Teams Dough Brake Machine Operator Relationship Specialty Start Date End Date Naty Amaral MD [address] [place] [address] [address] [place] [address] PCP - General Adolescent Medicine 02/22/17 [place] [address] [address] Orthopedic Surgery 03/06/17
[2024-06-19 18:55] LABS: Add Urine Microscopic? YES; Appearance Urine Clear (Clear); Bacteria Urine None Seen /hpf; Bilirubin Urine Negative (Negative); Blood Urine Negative (Negative); Color Urine Yellow (Yellow); Glucose Urine UA Negative (Negative); Ketones Urine Negative (Negative); Leukocyte Esterase Ur Trace LEU/UL (Negative); Nitrate Urine Negative (Negative); Non Pathogenic Casts 0-2; Protein Urine Negative (Negative); RBC Urine 0-2 /hpf (0-2); Specific Grav Ur 1.014 (1.001-1.035); Squamous Epithelial Cell Urine None Seen /hpf (Few); Urobilinogen Urine 0.2 mg/dL (<2.0); WBC Urine 0-5 /hpf (0-3); pH Urine 7.5 (5.0-9.0)
== END 2024-06-19 14:08 | disposition home or self-care (01) ==
LOC: ANHBWCLAB 14:10
PROVIDERS: PCP Nurse Practitioner Adult Health; Visit Provider Nurse Practitioner Adult Health
DX: R39.9 Unspecified symptoms and signs involving the genitourinary system (principal)
CPT/HCPCS: 81001; 87086

== ENCOUNTER 2025-04-01 10:47 | Outpatient (CLI) | payer MEDICARE, OTHER, SELFPAY ==
--- NOTE | ~2025-04-01 | XR_ITS ---
EXAM/PROCEDURE: XR chest 2V HISTORY: Cough and SOB x 3 wks COMPARISON: 2004 TECHNIQUE: Two view(s) of the chest. FINDINGS: LUNGS: Clear of acute processes. PLEURAL SPACES: Clear. No evidence of fluid or pneumothorax. HEART/ MEDIASTINUM: Mild cardiomegaly SOFT TISSUES: No significant findings. BONES: Degenerative change and findings consistent with DISH. IMPRESSION: No acute findings. Reviewed, dictated and finalized at location A. F SUBSTATION OPERATOR IMPRESSION: No acute findings.
--- OUTSIDE RECORDS SUMMARY | 2025-04-01 12:17 | XMS_ITS | Encounter Summary ---
Author Organization [facility] Facility Care Team Providers Care Bias Binding Cutter Name Role Phone Estuardo Emmaneul MD Primary Care Provider [phone] Milo Amaral MD Primary Care Provide r Milo Amaral MD Primary Care Provide r Estuardo Emmanuel MD Primary Care Provider [phone] Milo Amaral MD Primary Care Provide r Marlen Salazar NP Primary Care Provider [phone] Magalie Alvarado MD Primary Care Provider Star Bell MD Unavailable Marietta Gaming MD Unavailable [phone] Encounter Details Date Type Department Care Team (Latest Contact Info) Description 04/26/2017 Orders Only [facility] CLINCONV ProviderJuan MD [address] [place] [address] Social History Tobacco Use Types Packs/Day Years Used Date Smoking Tobacco: Never Comments Unknown Sex and Gender Information Value Date Recorded Sex Assigned at Not on file Legal Sex Female 11:14 PM POWER HOUSE CONTROL ROOM OPERATOR Gender Identity Not on file Sexual Orientation Not on file documented as of this encounter Plan of Treatment Not on file documented as of this encounter Procedures Procedure Name Priority Date/Time Associated Diagnosis Comments COLONOSCOPY - SCAN 04/26/2017 12 :00 AM POWER HOUSE CONTROL ROOM OPERATOR documented in this encounter Results * COLONOSCOPY - SCAN (04/26/2017 12:00 AM POWER HOUSE CONTROL ROOM OPERATOR) Narrative 04/26/2017 12:00 AM POWER HOUSE CONTROL ROOM OPERATOR Ordered by an unspecified provider. us Historical Provider Final Res ult documented in this encounter Visit Diagnoses Not on filedocumented in this encounter Care Teams Bias Binding Cutter Relationship Specialty Start Date End Date Estuardo Emmanuel MD [address] [place] [address] PCP - General 09/06/16 07/09/17 Milo Amaral MD [address] [place] [address] PCP - General 07/10/17 07/16/17 Milo Amaral MD [address] [place] [address] PCP - General 07/17/17 07/17/17 Estuardo Emmanuel MD [address] [place] [address] PCP - General 07/18/17 08/01/17 Milo Amaral MD [address] [place] [address] PCP - General 08/02/17 12/25/17 Marlen Salazar NP [address] [place] [address] PCP - General 12/26/17 05/03/22 Magalie Alvarado MD [address] [facility] [address] [place] [address] PCP - General Family Practice 05/04/22 Star Bell MD [address] [facility] [address] [place] [address] Surgeon Orthopedic Surgery 05/04/22 Marietta Gaming MD [address] [place] [address] Consulting Physician Pulmonary Disease 05/04/22 documented as of this encounter
--- OUTSIDE RECORDS SUMMARY | 2025-04-01 12:17 | XMS_ITS | Clinical Summary ---
Author Organization [facility] Address [address] [facility] [place] [address] Care Team Providers Care Sap Data Analyst Name Role Phone Naty Amaral MD Primary Care Provider [phone] Sherman Whitten MD Unavailable [phone] Source Comments [facility],non-owned Affiliates and Associated Physician Practices is amultiple site organization consisting of ambulatory clinics and hospital sitesin [place], [place] and [place]. This disclosure is being madepursuant to the Care Everywhere program and may not contain all information available regarding this patient. Last updated 18.[facility] Allergies Active Allergy Reactions Criticality Noted Date Comments Penicillins 03/06/2017 Medications * Be aware that medications may not be up to date on this document. Alwaysverify current medications with the patient. nabumetone (RELAFEN) 750 MG tablet Take 1 tablet by mouth 2 times daily 60 tablet 5 7 Active Additional Information Patient not taking.Reported on 04/17/2017 Active Problems Problem Noted Date Diagnosed Date Primary osteoarthritis of right knee 04/17/2017 Social History Tobacco Use Types Packs/Day Years Used Date Smoking Tobacco: Never Smokeless Tobacco: Never Comments Unknown Sex and Gender Information Value Date Recorded Sex Assigned at Not on file Legal Sex Female 4:25 PM CDT Gender Identity Not on file Sexual Orientation Not on file Last Filed Vital Signs Vital Sign Reading Time Taken Comments Blood Pressure - - Pulse - - Temperature - - Respiratory Rate - - Oxygen Saturation - - Inhaled Oxygen Concentration - - Weight 120.2 kg (265 lb) 03/06/2017 2:20 PM CDT Height 160 cm (5' 3) 03/06/2017 2:20 PM CDT Body Mass Index [...] SCREENING 1952 LIPID TESTING 1952 MAMMOGRAM 1950 MEDICARE AWV 12 MONTHS 1952 HEPATITIS C SCREENING 02/27/1970 DTAP/TDAP/TD VACCINES (1 - Tdap) 1971 PNEUMOCOCCAL VACCINE 50+ (1 of 1 - PCV) 2002 ZOSTER VACCINE (1 of 2) 2002 Respiratory Syncytial Virus (RSV) Vaccine Pt: or over 60 yrs (1 - Risk 60-74 years 1-dose series) 2012 SCREENING FOR DIABETES 03/06/2017 DEPRESSION SCREENING 05/21/2024 COVID-19 VACCINE (1 - 2023-2 5 season) 2025 INFLUENZA VACCINE (#1) 2025 HEPATITIS B VACCINE Aged Out No longe r eligible based on patient's age to complete this topic HIB VACCINE Aged Out No longer eligi ble based on patient's age to complete this topic HPV VACCINE Aged Out No longer eligi ble based on patient's age to complete this topic MENINGOCOCCAL (Group B) VACC INE SHARED DECISION-MAKING Aged Out No longer eligibl e based on patient's age to complete this topic MENINGOCOCCAL GROUPS A/C/Y/W VACCINE Aged Out No longer eligible b ased on patient's age to complete this topic Insurance [facility] MEDICARE Care Teams Sap Data Analyst Relationship Specialty Start Date End Date Naty Amaral MD [address] [place] [phone] PCP - General Adolescent Medicine 02/22/17 [place] [address] [facility] [address] [place] [address] Orthopedic Surgery 03/06/17
--- OUTSIDE RECORDS SUMMARY | 2025-04-01 12:17 | XMS_ITS | Clinical Summary ---
Author Organization [facility] Address [address] [place] [address] Care Team Providers Care Ship Scaler Name Role Phone Magalie Nieves MD Primary Care Provider Star Bell MD Unavailable [phone] Marietta Gaming MD Unavailable [phone] Allergies Active Allergy Reactions Criticality Noted Date Comments Guaifenesin Other (See comments) Low 08/16/2016 Mental issues. Feels spaced out Polyethylene Glycol 3350 Angioedema High 08/16/2016 Penicillins Rash Medium 01/24/2012 Medications CALCIUM ORAL Active [id number] mg capsule Active magnesium oxide (MAG-OX) 400 [...] then Sunday// Sunday 42.5 g 11 4 Active Active Problems Problem Noted Date Diagnosed Date Osteopenia of neck of femur 06/16/2022 MARILIN (obstructive sleep apnea) 04/10/2017 Class 3 severe obesity due t o excess calories without serious comorbidity with body mass index (BMI) of 40.0 to 44.9 in adult 02/21/2017 Arthritis of right knee 02/21/2017 Resolved Problems Problem Noted Date Diagnosed Date Resolved Date Body mass index 40.0-44.9, adult ([facility]) 05/04/2022 05/04/2022 Herpes zoster 09/18/2020 [...] Uterine Surgery - (Added by HAYES Conv) VT COLONOSCOPY FLX DX W/COLLJ SPEC WHEN PFRMD [...] on file Legal Sex Female 11:14 PM SEAL SKINNER Gender Identity Not on file Sexual Orientation [...] PM CDT Pulse 64 05/04/2022 2:22 PM SEAL SKINNER Temperature - - Respiratory Rate - - Oxygen Saturation 96% 12/11/2017 2:15 PM CDT Inhaled Oxygen Concentration - - Weight 110.7 kg (244 lb) 10/16/2024 2:38 PM CDT Height 160 cm (5' 3) 10/16/2024 2:38 PM CDT Body Mass Index 43.22 10/16/2024 2:38 PM CDT Plan of Treatment Health Maintenance Due Date Last Done Comments Colon Cancer Screening-Colonoscopy 1950 DTaP/Tdap/Td Vaccine (1 - Tdap) 1963 Hepatitis B Screening 1970 Pneumococcal vaccine 65+ (1 of 1 - PCV) 2002 Zoster Vaccine (1 of 2) 2002 Depression Screening 05/04/2023 05/04/2022 Fall Risk Assessment 05/04/2023 05/04/2022 Well Visit 65+ 05/04/2023 05/04/2022 Breast Cancer Screening-Mammogram 06/15/2023 06/15/2022, 01/29/2019, 01/17/2018, Additional history exists Osteoporosis Screening-Bone Density Scan 06/15/2024 06/15/2022 Influenza Vaccine (#1) 2025 Colon Cancer Screening-DNA Stool Discontinued 06/07/19 Colon Cancer Screening-FIT Discontinued 06/07/2022 Hepatitis C Screening Completed 06/15/2022 Procedures Procedure Name Priority Date/Time Associated Diagnosis Comments SCREENING MAMMOGRAM BILATERAL W HADLEY Schedule Routine, Read Routine (OP Routine) 06/15/2022 2:39 PM SEAL SKINNER Encounter for screening mammogram for malignant neoplasm of breast DEXA AXIAL SKELETON BONE DENSITY 1 OR MORE SITES Schedule Routine, Read Routine (OP Routine) 06/15/2022 2:25 PM SEAL SKINNER Postmenopausal HEPATITIS C ANTIBODY Routine 06/15/2022 10:36 AM SEAL SKINNER Routine physical examination Encounter for hepatitis C screening test for low risk patient STOOL DNA COLOGUARD Routine 06/07/2022 9:35 AM SEAL SKINNER Screen for colon cancer from Last 3 Months or Most Recently Relevant to Health Maintenance Results * SCREENING MAMMOGRAM BILATERAL W HADLEY (06/15/2022 2:39 PM SEAL SKINNER) Anatomical Region Laterality Modality Breast Bilateral Mammography 06/16/2022 9:55 AM SEAL SKINNER Impressions 06/16/2022 9:55 AM SEAL SKINNER There is no mammographic evidence of malignancy. A 1 year screening mammogram is recommended. BI-RADS: 1 - Negative. The patient has been or will be contacted. The patient will be entered into a reminder system with a target due date of 1 year for her next mammogram. Electronically signed by: Masood Wick M.D. Narrative 06/16/2022 9:55 AM SEAL SKINNER EXAMINATION: SCREENING MAMMOGRAM BILATERAL W HADLEY ORDERING HEALTHCARE PROVIDER: MAGALIE NIEVES HISTORY: Routine screening mammography. COMPARISON: 01/29/2019, 01/17/2018, 11/13/2016, 09/08/2015 TECHNIQUE: CC and MLO [...] 1 or 2 Site (06/15/2022 2:25 PM SEAL SKINNER) Anatomical Region Laterality Modality Body N/A Other 06/15/2022 7:53 PM SEAL SKINNER Narrative 06/15/2022 7:55 PM SEAL SKINNER EXAM DESCRIPTION: DEXA AXIAL SKELETON BONE DENSITY 1 OR MORE SITES REASON FOR STUDY: 72 y/o year old F with given history of screening. 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 FINDINGS: AP LUMBAR SPINE L1-L4: Total BMD is 1.047 g/cm2 T-score is 0.0 LEFT HIP: Total BMD is 0.797 g/cm2 T-score is -1.2 Femoral neck BMD is 0.40348 g/cm2 T-score is -2.4 FRAX: 10 year risk for a major osteoporotic fracture is 12 %, 10 year risk for a hip fracture is 2.6 % IMPRESSION: Based on the left femoral neck bone mineral density (T-score -2.4 ) the patient has low bone mass . REFERENCE: Bone mineral density: Normal (T-score above or = -1.0) Low bone mass (T-score between -1.0 and -2.5) replaces the previously used term osteopenia Osteoporosis (T-score = or below -2.5) Medical evaluation for secondary causes of low bone mineral density may be appropriate. FRAX is a World Health Organization validated fracture risk assessment tool that calculates a person's 10 year probability of a major osteoporosis related fracture and hip fracture. According to the National Osteoporosis Foundation guidelines, postmenopausal [...] Masoud Glover M.D. MF: [id number] Report ID: [id number] Reading Location: [place] [address] Procedure Note Masoud Glover MD - 06/15/2022 EXAM DESCRIPTION: DEXA AXIAL SKELETON BONE DENSITY 1 OR MORE SITES REASON FOR STUDY: 72 y/o year old F with given history ofscreening. 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 FINDINGS: AP LUMBAR SPINE L1-L4: Total BMD is 1.047 g/cm2 T-score is 0.0 LEFT HIP: Total BMD is 0.797 g/cm2 T-score is -1.2 Femoral neck BMD is 0.21840 g/cm2 T-score is -2.4 FRAX: 10 year [...] Masoud Glover M.D. MF: [email or web address] Report ID: [id number] Reading Location: [place] [address] Magalie Nieves MD IM DXA PROCEDURES Fin al Result * Hepatitis C antibody (06/15/2022 10:36 AM SEAL SKINNER) Pathologist [facility] Hep C Ab Nonreactive Nonreactive HAO Comment: Interpretive Data Nonreactive: Antibodies to HCV not detected. Does NOT exclude the possibility of recent exposure to HCV. Equivocal: Equivocal for HCV antibodies. Supplemental molecular testing will be automatically performed to determine infection status in accordance with current CDC screening recommendations. Reactive: Positive for HCV antibodies. This may represent current or past HCV infection. Supplemental molecular testing will be automatically performed to determine current infection status in accordance with current CDC screening recommendations. Interpretive data was last revised on 2019. Blood 06/15/2022 10:3 6 AM SEAL SKINNER 06/15/2022 2:45 PM SEAL SKINNER Magalie Nieves MD LAB MICROBIOLOGY - GEN ERAL ORDERABLES Final Result [facility] [address] [address] Department [place] [address] * Stool DNA - Cologuard (06/07/2022 9:35 AM SEAL SKINNER) Stool DNA - Cologuard Negative Negative [facility] (CLIA #:[id number]) Comment: NEGATIVE TEST RESULT. A negative Cologuard result indicates a low likelihood that a colorectal cancer (CRC) or advanced adenoma (adenomatous polyps with more advanced pre-malignant features) is present. The chance that a person with a negative Cologuard test has a colorectal cancer is less than 1 in 1500 (negative predictive value >99.9%) or has an advanced adenoma is less than 5.3% (negative predictive value 94.7%). These data are based on a prospective cross-sectional study of 10,000 individuals at average risk for colorectal cancer who were screened with both Cologuard and colonoscopy. (Tori Mendoza. et al, N Engl J Med 2014;370(14):0231-7583) The normal value (reference range) for this assay is negative. COLOGUARD RE-SCREENING RECOMMENDATION: Periodic colorectal cancer screening is an important part of preventive healthcare for asymptomatic individuals at average risk for colorectal cancer. Following a negative Cologuard result, the [place] [employer] and U.S. Multi-Society Task Force screening guidelines recommend a Cologuard re-screening interval of 3 years. References: [place] [employer] Guideline for Colorectal Cancer Screening: https://www.cancer.org/cancer/rzwpd-bctxbh-atnyug/osgtsiuob-pftecdcpi-mkcdzvp/ac s-rec ommendations.html.; Jake RUTHERFORD, Negar KOCH, Silvia GonzalesK, Colorectal Cancer Screening: Recommendations for Physicians and Patients from the U.S. Multi-Society Task Force on Colorectal Cancer Screening , Am J Gastroenterology 2017; 112:7297-4639. TEST DESCRIPTION: Composite algorithmic analysis of stool DNA-biomarkers with hemoglobin immunoassay. Quantitative values of individual biomarkers are not [...] Medellin et al, N Engl J Med 2014;370(14):3005-3542.) Cologuard may produce a false negative or false positive result (no colorectal cancer or precancerous polyp present at colonoscopy follow up). A negative Cologuard test result does not guarantee the absence of CRC or advanced adenoma (pre-cancer). The current Cologuard screening interval is every 3 years. ([place] [employer] and U.S. Multi-Society Task Force). Cologuard performance data in a 10,000 patient pivotal study using colonoscopy as the reference method can be accessed at the following location: www.Podotree/results. Additional description of the Cologuard test process, warnings and precautions can be found at [email or web address]. Stool 06/07/2022 9:35 AM SEAL SKINNER 06/08/2022 12:39 PM SEAL SKINNER Magalie Nieves MD LAB BODY FLUIDS AND ST OOLS ORDERABLES Final Result [facility] (CLIA #:[id number]) [place] [address] [place] [address] from Last 3 Months or Most Recently Relevant to Health Maintenance Insurance MEDICARE [facility] MEDICARE [facility] MEDICARE [place] [employer] [facility] Care Teams Ship Scaler Relationship Specialty Start Date End Date Magalie Nieves MD PCP - General Family Practice 05/04/22 Star Bell MD [address] [place] [address] Surgeon Orthopedic Surgery 05/04/22 Marietta Gaming MD [address] [place] [address] Consulting Physician Pulmonary Disease 05/04/22
[2025-04-01 20:41] LABS: Add Urine Microscopic? YES; Appearance Urine Clear (Clear); Glucose Urine UA Negative (Negative); Leukocyte Esterase Ur 1+ LEU/UL (Negative); Need Manual Microscopic Reviewed; Nitrate Urine Negative (Negative); Non Pathogenic Casts 0-2; Specific Grav Ur 1.007 (1.001-1.035)
== END 2025-04-01 10:48 | disposition home or self-care (01) ==
LOC: ANHBWCLAB 10:48
PROVIDERS: PCP Nurse Practitioner Adult Health; Visit Provider Nurse Practitioner Adult Health
DX: R05.9 Cough, unspecified (principal); R06.02 Shortness of breath; R39.9 Unspecified symptoms and signs involving the genitourinary system
CPT/HCPCS: 71046; 81001; 87086